=== PATIENT | male | born 2000 | race Caucasian/White ===

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

== ENCOUNTER → 2019-11-12 | Outpatient (CLI) | payer BC, OTHER ==
[~2019-11-12] MED LIST changes: +GASTROGRAFIN SOLUTION 30ML (Q9963) As Ordered ONE; +ISOVUE-370 76% 100ML VIAL (Q9967) As Ordered ONE
--- NOTE | 2019-11-12 14:31 | REP ---
CT of the abdomen and pelvis with IV and oral contrast for right lower quadrant abdominal pain. There are no comparisons. The appendix and terminal ileum are unremarkable. The gallbladder is unremarkable. There are no renal or ureteral calculi. There is no hydronephrosis. The visualized lung [place] are unremarkable. The hepatic parenchyma, gallbladder, pancreas, spleen, adrenals, kidneys and abdominal aorta are unremarkable. There is no bowel distension or obstruction. Mesentery is unremarkable. There is no ascites or adenopathy. Pelvis: The pelvic bowel loops are unremarkable. The bladder is unremarkable. The Impression: Essentially negative CT study of the abdomen and pelvis. The gallbladder, appendix, terminal ileum, kidneys, ureters and bladder are unremarkable. There is no adenopathy, ascites or mass. Electronically Signed by Demetrio Souza MD 11/12/2019 02:23 P
== END ==
LOC: M RAD 12:09
PROVIDERS: ATTEND Physician Assistant
DX: R10.813 Right lower quadrant abdominal tenderness (principal)
CPT/HCPCS: 74177; Q9963; Q9967

== ENCOUNTER 2022-01-16 22:49 | Emergency (ER) | payer BC, OTHER ==
[~2022-01-16] VITALS: Ht 180.3 cm; Wt 70.7 kg
[~2022-01-16 22:49] MED LIST changes: -GASTROGRAFIN SOLUTION 30ML (Q9963) As Ordered ONE; -ISOVUE-370 76% 100ML VIAL (Q9967) As Ordered ONE
[2022-01-17 00:25] LABS: AMPHETAMINES LEVEL URINE NEGATIVE (NEGATIVE); BARBITURATES URINE NEGATIVE (NEGATIVE); BENZODIAZEPINES URINE NEGATIVE (NEGATIVE); CANNABINOIDS URINE POSITIVE (NEGATIVE); COCAINE METABOLITE URINE NEGATIVE (NEGATIVE); HEMATOCRIT 42.5 % (42.0-52.0); HEMOGLOBIN 15.3 g/dl (13.5-17.5); MEAN CORPUSCULAR HEMOGLOBIN 30.2 pg (27.0-33.0); METHADONE URINE NEGATIVE (NEGATIVE); OPIATES URINE NEGATIVE (NEGATIVE); PHENCYCLIDINE URINE NEGATIVE (NEGATIVE); PLATELET COUNT, AUTOMATED 241 10^3/uL (150-450); RED BLOOD COUNT 5.06 10^6/uL (4.30-6.10); WHITE BLOOD COUNT 8.3 10^3/uL (4.0-10.0)
[2022-01-17 00:47] LABS: ALBUMIN 4.6 GM/DL (3.2-5.2); ALT/SGPT 21 U/L (12-78); BILIRUBIN,DIRECT 0.3 MG/DL (0.0-0.2); BLOOD UREA NITROGEN 10 MG/DL (7-18); CALCIUM LEVEL 9.8 MG/DL (8.5-10.1); CARBON DIOXIDE LEVEL 28 MEQ/L (21-32); CHLORIDE LEVEL 108 MEQ/L (98-107); CREATININE FOR GFR 0.94 MG/DL (0.70-1.30); ETHYL ALCOHOL (ETHANOL) 0.005 % (0.000-0.010); GLOMERULAR FILTRATION RATE > 60.0 (>60); GLUCOSE, FASTING 87 MG/DL (70-100); POTASSIUM SERUM 3.7 MEQ/L (3.5-5.1); SODIUM LEVEL 141 MEQ/L (136-145); TOTAL PROTEIN 7.3 GM/DL (6.4-8.2)
[2022-01-17 00:48] LABS: SALICYLATE LEVEL < 1.7 MG/DL (5.0-30.0)
[2022-01-17 00:51] VITALS: BP 124/84
[2022-01-17 00:57] LABS: RSV AMPLIFICATION NEGATIVE (NEGATIVE)
[2022-01-17 01:39] LABS: ACETAMINOPHEN LEVEL < 2.0 UG/ML (10.0-30.0)
== END 2022-01-17 01:12 | disposition home or self-care (01) ==
LOC: M ED 22:49
DX: F33.9 Major depressive disorder, recurrent, unspecified (principal); F17.210 Nicotine dependence, cigarettes, uncomplicated; F12.20 Cannabis dependence, uncomplicated

== ENCOUNTER → 2022-10-28 | Outpatient (REF) | payer OTHER | LOC: M WUC 19:10 | PROVIDERS: ATTEND Student in an Organized Health Care Education/Training Program | DX: J02.9 Acute pharyngitis, unspecified (principal) ==